=== PATIENT | female | born 1945 | race Caucasian/White ===

== ENCOUNTER 2024-12-25 10:05 | Emergency (ER) | payer MEDICARE, BC ==
[~2024-12-25] VITALS: Ht 165.1 cm; Wt 60.3 kg
[2024-12-25 14:11] VITALS: BP 138/70; TEMP 98.8; O2SAT 99
== END 2024-12-25 14:12 | disposition left against medical advice (07) ==
LOC: ER 10:10
DX: S09.90XA Unspecified injury of head, initial encounter (principal); I10 Essential (primary) hypertension; W01.0XXA Fall on same level from slipping, tripping and stumbling without subsequent striking against object, initial encounter; Y93.89 Activity, other specified; Y92.89 Other specified places as the place of occurrence of the external cause; Y99.8 Other external cause status
CPT/HCPCS: 70450-TC